=== PATIENT | female | born 2000 | race African-American/Black ===

== ENCOUNTER 2023-02-03 14:23 | Emergency (ER) | payer OTHER ==
[2023-02-03 14:30] VITALS: TEMP 98; BMI 26.4
[2023-02-03 14:58] VITALS: BP 105/67; PULSE 70; RESP 19
[2023-02-03] MEDS ORDERED: SODIUM CHLORIDE 1,000 ML IV STA (15:54)
[2023-02-03] MEDS ORDERED: ONDANSETRON 4 MG/2 ML VIAL IVPUSH ONE (15:54)
[2023-02-03] MEDS ORDERED: ACETAMINOPHEN 1000 MG/100 ML BAG IVPB ONE (15:54)
[2023-02-03] MEDS ORDERED: ACETAMINOPHEN INJECTION 100 ML IVPB ONE (16:15)
[2023-02-03] MEDS ORDERED: ONDANSETRON 4 MG/2 ML VIAL ONE (16:15)
[2023-02-03 16:18] LABS: BASO % 0.4 % (0-2.0); EOS % 0.4 % (0-4.5); HEMATOCRIT 46.1 % (32.4-45.2); HEMOGLOBIN 15.4 GM/dL (10.7-15.3); LYMPH % 9.8 % (8-40); MCH 30.6 pg (25.7-33.7); MCHC 33.4 g/dl (32.0-36.0); MEAN CELL VOLUME 91.8 fl (80-96); MEAN PLT VOLUME 9.7 fl (7.5-11.1); MONO % 3.3 % (3.8-10.2); NEUT % 86.1 % (42.8-82.8); PLATELET COUNT 254 10^3/uL (134-434); RBC 5.02 M/mm3 (3.60-5.2); RDW 14.5 % (11.6-15.6); WHITE BLOOD COUNT 11.2 K/mm3 (4.0-10.0)
[2023-02-03 16:39] LABS: POTASSIUM 4.5 mmol/L (3.5-5.1)
[2023-02-03 16:41] LABS: CALCIUM 9.7 mg/dL (8.5-10.1)
[2023-02-03 16:42] LABS: ALBUMIN 4.3 g/dl (3.4-5.0)
[2023-02-03 16:44] LABS: BLOOD UREA NITROGEN 5.9 mg/dL (7-18)
[2023-02-03 16:45] LABS: CREATININE 0.9 mg/dL (0.55-1.3)
[2023-02-03 16:47] LABS: TOT PROT 7.9 g/dl (6.4-8.2)
[2023-02-03] MEDS ORDERED: morphine CARPU-JECT 2 MG/1 ML DISP.SYRIN IVPUSH ONE (16:59)
[2023-02-03 18:36] LABS: EPI CELLS >36 /uL (0-25.1); HYALINE CASTS 2 /uL (0-3.1); PH,URINE 6.5 (5.0-8.0); URINE APPEARANCE CLEAR; URINE BILIRUBIN NEGATIVE (NEGATIVE); URINE COLOR YELLOW; URINE GLUCOSE (UA) NEGATIVE (NEGATIVE); URINE KETONE 3+ (NEGATIVE); URINE LEUK ESTERASE NEGATIVE (NEGATIVE); URINE NITRITE NEGATIVE (NEGATIVE); URINE PROTEIN 1+ (NEGATIVE); URINE RBC 6 /uL (0-23.9)
[2023-02-03] MEDS ORDERED: morphine CARPU-JECT 4 MG/1 ML DISP.SYRIN IVPUSH ONE (18:53)
[2023-02-03] MEDS ORDERED: morphine SULFATE 4 MG/ML VIAL ONE (19:16)
[2023-02-03 19:29] LABS: URINE BACTERIA 221.5 /uL (0-1359); URINE WBC 72.4 /uL (0-25.8)
== END 2023-02-03 20:24 | disposition home or self-care (01) ==
LOC: MERGE 14:23 → JER 14:23
PROC: 3E033NZ Introduction of Analgesics, Hypnotics, Sedatives into Peripheral Vein, Percutaneous Approach (ICD-10-PCS; principal; 2023-02-03)
PROC: 3E033GC Introduction of Other Therapeutic Substance into Peripheral Vein, Percutaneous Approach (ICD-10-PCS; 2023-02-03)
PROC: 3E033GC Introduction of Other Therapeutic Substance into Peripheral Vein, Percutaneous Approach (ICD-10-PCS; 2023-02-03)
PROC: 3E033GC Introduction of Other Therapeutic Substance into Peripheral Vein, Percutaneous Approach (ICD-10-PCS; 2023-02-03)
PROC: 3E0337Z Introduction of Electrolytic and Water Balance Substance into Peripheral Vein, Percutaneous Approach (ICD-10-PCS; 2023-02-03)
DX: R10.30 Lower abdominal pain, unspecified (principal); R10.2 Pelvic and perineal pain; R11.2 Nausea with vomiting, unspecified; N93.9 Abnormal uterine and vaginal bleeding, unspecified
CPT/HCPCS: 36415; 76817-TC; 80053; 81003; 84702; 85025; 86850; 86900; 86901; 99284-25

== ENCOUNTER 2023-02-05 12:47 | Emergency (ER) | payer OTHER ==
[2023-02-05 12:56] VITALS: BP 91/55; PULSE 86; RESP 20; TEMP 98.6; BMI 26.4
[2023-02-05] MEDS ORDERED: ACETAMINOPHEN 1000 MG/100 ML BAG IVPB ONE (14:01)
[2023-02-05] MEDS ORDERED: ACETAMINOPHEN INJECTION 100 ML IVPB ONE (14:16)
[2023-02-05 14:31] LABS: BASO % 0.7 % (0-2.0); HEMATOCRIT 43.2 % (32.4-45.2); HEMOGLOBIN 14.6 GM/dL (10.7-15.3); LYMPH % 23.1 % (8-40); MCH 31.1 pg (25.7-33.7); MCHC 33.7 g/dl (32.0-36.0); MEAN CELL VOLUME 92.2 fl (80-96); MEAN PLT VOLUME 9.2 fl (7.5-11.1); MONO % 6.5 % (3.8-10.2); NEUT % 68.7 % (42.8-82.8); PLATELET COUNT 242 10^3/uL (134-434); RBC 4.69 M/mm3 (3.60-5.2); RDW 14.6 % (11.6-15.6); WHITE BLOOD COUNT 7.9 K/mm3 (4.0-10.0)
[2023-02-05] MEDS ORDERED: KETOROLAC TROMETHAMINE 15 MG/ML VIAL IVPUSH ONE (14:48)
[2023-02-05] MEDS ORDERED: FAMOTIDINE 20 MG/50 ML IVPB 20 MG/50 ML MG IVPB ONE ×2 (14:52→15:28)
[2023-02-05] MEDS ORDERED: ONDANSETRON 4 MG/2 ML VIAL IVPB ONE (14:53)
[2023-02-05 15:00] LABS: POTASSIUM 3.8 mmol/L (3.5-5.1)
[2023-02-05 15:02] LABS: ALBUMIN 3.9 g/dl (3.4-5.0); BLOOD UREA NITROGEN 6.1 mg/dL (7-18); CALCIUM 9.4 mg/dL (8.5-10.1)
[2023-02-05 15:05] LABS: CREATININE 0.8 mg/dL (0.55-1.3)
[2023-02-05 15:07] LABS: BILIRUBIN,TOTAL 0.7 mg/dL (0.2-1); TOT PROT 7.3 g/dl (6.4-8.2)
[2023-02-05] MEDS ORDERED: MAG HYDROX/AL HYDROX/SIMETH 30 ML UNIT-DOSE CUP PO ONE (15:12)
[2023-02-05] MEDS ORDERED: ONDANSETRON 4 MG/2 ML VIAL ONE (15:28)
[2023-02-05] MEDS ORDERED: KETOROLAC TROMETHAMINE 15 MG/ML VIAL ONE (15:28)
[2023-02-05] MEDS ORDERED: MAG HYDROX/AL HYDROX/SIMETH 30 ML UNIT-DOSE CUP ONE (15:28)
[2023-02-05 16:13] LABS: HCG,QUALITATIVE URINE Positive
[2023-02-05 16:16] LABS: EPI CELLS 24 /uL (0-25.1); HYALINE CASTS 2 /uL (0-3.1); PH,URINE 6.5 (5.0-8.0); URINE APPEARANCE CLEAR; URINE BACTERIA 207 /uL (0-1359); URINE BILIRUBIN NEGATIVE (NEGATIVE); URINE COLOR DK YELLOW; URINE GLUCOSE (UA) NEGATIVE (NEGATIVE); URINE KETONE 1+ (NEGATIVE); URINE LEUK ESTERASE NEGATIVE (NEGATIVE); URINE NITRITE NEGATIVE (NEGATIVE); URINE PROTEIN TRACE (NEGATIVE); URINE RBC 30 /uL (0-23.9); URINE UROBILINOGEN 4.0 E.U/dl mg/dL (0.2-1.0); URINE WBC 42 /uL (0-25.8)
[2023-02-05] MEDS ORDERED: METOCLOPRAMIDE HCL INJECTION 10 MG/2 ML VIAL IVPB ONE (16:23)
[2023-02-05] MEDS ORDERED: METOCLOPRAMIDE HCL INJECTION 10 MG/2 ML VIAL IVPUSH ONE (16:23)
[2023-02-05] MEDS ORDERED: METOCLOPRAMIDE HCL INJECTION 10 MG/2 ML VIAL ONE (16:56)
== END 2023-02-05 17:31 | disposition home or self-care (01) ==
LOC: JER 12:47
PROC: 3E033GC Introduction of Other Therapeutic Substance into Peripheral Vein, Percutaneous Approach (ICD-10-PCS; principal; 2023-02-05)
PROC: 3E033NZ Introduction of Analgesics, Hypnotics, Sedatives into Peripheral Vein, Percutaneous Approach (ICD-10-PCS; 2023-02-05)
PROC: 3E0333Z Introduction of Anti-inflammatory into Peripheral Vein, Percutaneous Approach (ICD-10-PCS; 2023-02-05)
PROC: 3E033GC Introduction of Other Therapeutic Substance into Peripheral Vein, Percutaneous Approach (ICD-10-PCS; 2023-02-05)
PROC: 3E033GC Introduction of Other Therapeutic Substance into Peripheral Vein, Percutaneous Approach (ICD-10-PCS; 2023-02-05)
DX: O21.9 Vomiting of pregnancy, unspecified (principal); O26.891 Other specified pregnancy related conditions, first trimester; O20.9 Hemorrhage in early pregnancy, unspecified; R10.9 Unspecified abdominal pain; R04.2 Hemoptysis; R07.9 Chest pain, unspecified; Z3A.00 Weeks of gestation of pregnancy not specified
CPT/HCPCS: 36415; 71046-TC-FY; 80053; 81003; 84702; 84703; 85025; 87086; 93005; 93010

== ENCOUNTER 2024-09-25 15:13 | Emergency (ER) | payer OTHER ==
[2024-09-25 15:26] VITALS: BMI 24.4
[2024-09-25] MEDS ORDERED: ONDANSETRON 4 MG/2 ML VIAL ONE (18:19)
[2024-09-25 18:21] LABS: ABSOLUTE IMMATURE GRANULOCYTES 0.06 x10^3/uL (0.0-0.031); BASOPHILS # 0.02 x10^3/uL (0.01-0.08); EOSINOPHIL % 0.2 % (0.7-5.8); EOSINOPHILS # 0.03 x10^3/uL (0.04-0.36); HEMATOCRIT 48.5 % (34.1-44.9); HEMOGLOBIN 16.3 g/dL (11.2-15.7); MCHC 33.6 g/dl (32.2-35.5); MEAN CELL VOLUME 89.3 fl (79.4-94.8); MEAN PLT VOLUME 11.7 fl (9.4-12.3); MONOCYTE # 0.62 x10^3/uL (0.24-0.86); MONOCYTE % 3.8 % (4.7-12.5); PLATELET COUNT 250 x10^3/uL (182-369); RDW 13.8 % (12.1-16.5)
[2024-09-25] MEDS: ONDANSETRON 4 MG/2 ML VIAL IVPB ONE (18:27)
[2024-09-25 18:47] LABS: CHLORIDE 100 mmol/L (98-107); SODIUM 133 mmol/L (136-145)
[2024-09-25 18:53] LABS: CALCIUM 10.2 mg/dL (8.5-10.1)
[2024-09-25 18:54] LABS: BLOOD UREA NITROGEN 7.9 mg/dL (7-18); CO2 27 mmol/L (21-32); GLUCOSE,RANDOM 117 mg/dL (74-106)
[2024-09-25 18:57] LABS: SGOT/AST 67 U/L (15-37)
[2024-09-25 18:58] LABS: BILIRUBIN,TOTAL 0.5 mg/dL (0.2-1); TOT PROT 9.2 g/dl (6.4-8.2)
[2024-09-25 18:59] LABS: ALK PHOS 95 U/L (45-117); ANION GAP 5 mmol/L (4-13); POTASSIUM 6.5 mmol/L (3.5-5.1); SGPT/ALT 52 U/L (13-61)
[2024-09-25] MEDS: LACTATED RINGERS SOLUTION 1000 ML INFUS.BAG IV ONE (19:37)
[2024-09-25 19:46] LABS: HCV DIAGNOSTIC IN-HOUSE W/RFLX NON-REACTIVE (NONREACTIVE)
[2024-09-25 19:47] LABS: HIV INTERPRETATION NEGATIVE (NEGATIVE)
[2024-09-25] MEDS ORDERED: ACETAMINOPHEN INJECTION 100 ML ONE (20:22)
[2024-09-25] MEDS: ACETAMINOPHEN 1000 MG/100 ML BAG IVPB ONE (20:24)
[2024-09-25 21:11] LABS: POTASSIUM 3.9 mmol/L (3.5-5.1)
[2024-09-25 21:13] LABS: BLOOD UREA NITROGEN 7.5 mg/dL (7-18); CALCIUM 9.6 mg/dL (8.5-10.1)
[2024-09-25 21:17] LABS: CREATININE 0.8 mg/dL (0.55-1.3)
[2024-09-25] MEDS ORDERED: KETOROLAC TROMETHAMINE 15 MG/ML VIAL ONE (22:06)
[2024-09-25] MEDS: KETOROLAC TROMETHAMINE 30 MG/1 ML VIAL IVPUSH ONE (22:10)
[2024-09-25 22:17] LABS: EPI CELLS 30 /uL (0-25.1); HYALINE CASTS 4 /uL (0-3.1); URINE APPEARANCE CLEAR; URINE BACTERIA 134 /uL (0-1359); URINE BILIRUBIN NEGATIVE (NEGATIVE); URINE COLOR DK YELLOW; URINE GLUCOSE (UA) NEGATIVE (NEGATIVE); URINE KETONE 1+ (NEGATIVE); URINE LEUK ESTERASE TRACE (NEGATIVE); URINE NITRITE NEGATIVE (NEGATIVE); URINE PROTEIN 1+ (NEGATIVE); URINE RBC 19 /uL (0-23.9); URINE UROBILINOGEN 4.0 E.U/dl mg/dL (0.2-1.0); URINE WBC 55 /uL (0-25.8)
[2024-09-25 22:27] LABS: URINE AMPHETAMINES NEGATIVE (NEGATIVE); URINE BARBITURATES NEGATIVE (NEGATIVE)
[2024-09-25 22:28] LABS: COCAINE, UR NEGATIVE (NEGATIVE); METHADONE, UR NEGATIVE (NEGATIVE); PHENCYCLIDINE,URINE NEGATIVE (NEGATIVE)
[2024-09-25 22:48] LABS: OPIATES, URI NEGATIVE (NEGATIVE); URINE BENZODIAZEPINES NEGATIVE (NEGATIVE)
[2024-09-25] MEDS ORDERED: ACETAMINOPHEN 325 MG TABLET (FP) ONE (23:15)
[2024-09-25] MEDS: ACETAMINOPHEN 325 MG TABLET (FP) PO ONE (23:33)
[2024-09-26] MEDS: morphine CARPU-JECT 2 MG/1 ML DISP.SYRIN IVPUSH ONE (00:20)
[2024-09-26] MEDS: CEFTRIAXONE 1,000 MG in DEXTROSE 5%-WATER - 50 ML IVPB ONE (00:20)
[2024-09-26] MEDS: metroNIDAZOLE 250 MG TABLET PO ONE (00:20)
[2024-09-26] MEDS ORDERED: MORPHINE SULFATE 2 MG/ML SYRINGE ONE (00:22)
[2024-09-26] MEDS ORDERED: CEFTRIAXONE 1 GM/50 ML BAG ONE (00:22)
[2024-09-26] MEDS ORDERED: metroNIDAZOLE 250 MG TABLET ONE (00:22)
[2024-09-26 00:46] VITALS: PULSE 64; RESP 18; TEMP 98.5
[2024-09-26 00:48] VITALS: BP 124/84
== END 2024-09-26 00:45 | disposition left against medical advice (07) ==
LOC: JER 15:13
PROC: 3E033GC Introduction of Other Therapeutic Substance into Peripheral Vein, Percutaneous Approach (ICD-10-PCS; principal; 2024-09-25)
PROC: 3E0333Z Introduction of Anti-inflammatory into Peripheral Vein, Percutaneous Approach (ICD-10-PCS; 2024-09-25)
PROC: 3E033GC Introduction of Other Therapeutic Substance into Peripheral Vein, Percutaneous Approach (ICD-10-PCS; 2024-09-25)
DX: K52.9 Noninfective gastroenteritis and colitis, unspecified (principal); R53.1 Weakness; M79.10 Myalgia, unspecified site; R11.0 Nausea; R63.0 Anorexia
CPT/HCPCS: 0241U-QW; 36415; 70450-TC; 71045-TC-FY; 74177-TC; 80048; 80053; 80307; 81003; 82550; 82553; 83690; 84703; 85025; 86803; 87040; 87086; 87389; 93005; 93010; 96374; 96375; 99285-25; Q9967

== ENCOUNTER 2024-09-26 23:44 | Inpatient (IN) | payer OTHER ==
[2024-09-27] MEDS ORDERED: ACETAMINOPHEN INJECTION 100 ML ONE (01:08)
[2024-09-27] MEDS ORDERED: KETOROLAC TROMETHAMINE 15 MG/ML VIAL ONE (01:08)
[2024-09-27] MEDS: ACETAMINOPHEN 1000 MG/100 ML BAG IVPB ONE (01:21)
[2024-09-27] MEDS: KETOROLAC TROMETHAMINE 15 MG/ML VIAL IVPUSH ONE (01:21)
[2024-09-27] MEDS: SODIUM CHLORIDE 0.9% 500 ML INFUS.BAG IV ONE (01:43)
[2024-09-27 02:57] LABS: ABSOLUTE IMMATURE GRANULOCYTES 0.02 x10^3/uL (0.0-0.031); BASOPHILS # 0.02 x10^3/uL (0.01-0.08); EOSINOPHIL % 2.4 % (0.7-5.8); EOSINOPHILS # 0.21 x10^3/uL (0.04-0.36); HEMATOCRIT 40.4 % (34.1-44.9); HEMOGLOBIN 13.6 g/dL (11.2-15.7); MCHC 33.7 g/dl (32.2-35.5); MEAN PLT VOLUME 11.4 fl (9.4-12.3); MONOCYTE # 0.69 x10^3/uL (0.24-0.86); MONOCYTE % 7.8 % (4.7-12.5); PLATELET COUNT 236 x10^3/uL (182-369); RDW 13.9 % (12.1-16.5)
[2024-09-27] MEDS: IBUPROFEN 600 MG TABLET (FP) PO PRN (03:16)
[2024-09-27 03:45] LABS: CHLORIDE 106 mmol/L (98-107); POTASSIUM 3.7 mmol/L (3.5-5.1); SODIUM 139 mmol/L (136-145)
[2024-09-27 03:48] LABS: ANION GAP 9 mmol/L (4-13); CO2 24 mmol/L (21-32); GLUCOSE,RANDOM 101 mg/dL (74-106); MAGNESIUM 1.9 mg/dL (1.8-2.4)
[2024-09-27 03:51] LABS: CREATININE 0.7 mg/dL (0.55-1.3); PHOSPHOROUS 3.4 mg/dL (2.5-4.9); SGOT/AST 12 U/L (15-37); SGPT/ALT 29 U/L (13-61)
[2024-09-27 03:52] LABS: BILIRUBIN,TOTAL 0.2 mg/dL (0.2-1)
[2024-09-27 03:54] LABS: ALK PHOS 84 U/L (45-117)
[2024-09-27 04:18] LABS: ERYTHROCYTE SEDIMENTATION RATE 12 mm/hr (0-20)
[2024-09-27 04:50] LABS: ALBUMIN 3.2 g/dl (3.4-5.0); TOT PROT 6.5 g/dl (6.4-8.2)
[2024-09-27 05:24] LABS: SICKLE CELL SCREEN POSITIVE (NEGATIVE)
[2024-09-27] MEDS: ACETAMINOPHEN 325 MG TABLET (FP) PO PRN (06:20)
[2024-09-27] MEDS: PREGABALIN 25 MG CAPSULE PO SCH (09:34)
[2024-09-27] MEDS: ENOXAPARIN NA (PORCINE) 30 MG/0.3 ML DISP.SYRIN SQ SCH (09:34)
[2024-09-27] MEDS ORDERED: ENOXAPARIN NA (PORCINE) 30 MG/0.3 ML DISP.SYRIN SQ SCH (10:00)
[2024-09-27] MEDS ORDERED: PREGABALIN 25 MG CAPSULE PO SCH (12:35)
[2024-09-27] MEDS: DULoxetine HCL 30 MG CAPSULE.DR PO SCH (17:55)
[2024-09-27 18:19] LABS: COCAINE, UR NEGATIVE (NEGATIVE); URINE AMPHETAMINES NEGATIVE (NEGATIVE); URINE BARBITURATES NEGATIVE (NEGATIVE); URINE BENZODIAZEPINES NEGATIVE (NEGATIVE)
[2024-09-27 18:20] LABS: METHADONE, UR NEGATIVE (NEGATIVE); PHENCYCLIDINE,URINE NEGATIVE (NEGATIVE)
[2024-09-27 18:32] LABS: OPIATES, URI NEGATIVE (NEGATIVE)
[2024-09-27] MEDS ORDERED: AMITRIPTYLINE HCL 10 MG TABLET PO SCH (22:00)
[2024-09-28] MEDS: MELATONIN 5 MG TABLETS PO PRN (01:10)
[2024-09-28] MEDS: ONDANSETRON 4 MG/2 ML VIAL IVPUSH ONE ×3 (02:08→15:12)
[2024-09-28] MEDS: IBUPROFEN 400 MG TABLET (FP) PO PRN (06:12)
[2024-09-28 07:53] LABS: CHLORIDE 107 mmol/L (98-107); POTASSIUM 3.9 mmol/L (3.5-5.1); SODIUM 141 mmol/L (136-145)
[2024-09-28 07:56] LABS: CALCIUM 9.5 mg/dL (8.5-10.1)
[2024-09-28 07:57] LABS: ALBUMIN 3.2 g/dl (3.4-5.0); ANION GAP 9 mmol/L (4-13); BLOOD UREA NITROGEN 5.8 mg/dL (7-18); CO2 25 mmol/L (21-32); GLUCOSE,RANDOM 102 mg/dL (74-106); MAGNESIUM 1.7 mg/dL (1.8-2.4)
[2024-09-28 08:00] LABS: CREATININE 0.6 mg/dL (0.55-1.3); PHOSPHOROUS 3.4 mg/dL (2.5-4.9); SGOT/AST 15 U/L (15-37); SGPT/ALT 27 U/L (13-61)
[2024-09-28 08:01] LABS: ABSOLUTE IMMATURE GRANULOCYTES 0.01 x10^3/uL (0.0-0.031); BASOPHILS # 0.04 x10^3/uL (0.01-0.08); EOSINOPHILS # 0.29 x10^3/uL (0.04-0.36); HEMATOCRIT 41.2 % (34.1-44.9); HEMOGLOBIN 13.6 g/dL (11.2-15.7); MEAN CELL VOLUME 89.4 fl (79.4-94.8); MEAN PLT VOLUME 12.6 fl (9.4-12.3); MONOCYTE # 0.44 x10^3/uL (0.24-0.86); PLATELET COUNT 153 x10^3/uL (182-369); RDW 13.8 % (12.1-16.5)
[2024-09-28 08:02] LABS: BILIRUBIN,TOTAL 0.2 mg/dL (0.2-1); TOT PROT 6.6 g/dl (6.4-8.2)
[2024-09-28 08:03] LABS: ALK PHOS 71 U/L (45-117)
[2024-09-28] MEDS: MAGNESIUM 2GM/50ML STERILE WATER IVPB IVPB ONE (09:00)
[2024-09-28] MEDS: LORazepam 4 MG/1 ML VIAL IVPUSH ONE (11:31)
[2024-09-28] MEDS: FAMOTIDINE 10 MG TABLET PO SCH (12:40)
[2024-09-28] MEDS ORDERED: ACETAMINOPHEN 325 MG TABLET (FP) PO PRN (13:16)
[2024-09-28] MEDS: PANTOPRAZOLE SODIUM 40 MG VIAL IVPUSH ONE (14:03)
[2024-09-28 16:08] VITALS: BMI 22.8
[2024-09-28] MEDS: methylPREDNISolone NA SUCC 125 MG/2 ML VIAL IVPB SCH ×2 (17:22→21:29)
[2024-09-28] MEDS: BACLOFEN 10 MG TABLET (FP) PO SCH (17:22)
[2024-09-28] MEDS: LORazepam 0.5 MG TABLET PO PRN (17:50)
[2024-09-28] MEDS ORDERED: KETOROLAC TROMETHAMINE 15 MG/ML VIAL IVPUSH PRN (19:14)
[2024-09-28] MEDS: KETOROLAC TROMETHAMINE 15 MG/ML VIAL IVPUSH PRN (19:57)
[2024-09-28] MEDS: ACETAMINOPHEN 500 MG TABLET (FP) PO SCH (20:03)
[2024-09-28] MEDS: oxyCODONE HCL 5 MG TABLET PO PRN (21:28)
[2024-09-28] MEDS ORDERED: GABAPENTIN 300 MG CAPSULE PO SCH (22:00)
[2024-09-29] MEDS: PANTOPRAZOLE 40 MG TABLET PO SCH (09:42)
[2024-09-29] MEDS ORDERED: KETOROLAC TROMETHAMINE 15 MG/ML VIAL IVPUSH PRN (15:01)
[2024-09-29] MEDS: KETOROLAC TROMETHAMINE 15 MG/ML VIAL IVPUSH PRN (17:46)
[2024-09-29] MEDS: ONDANSETRON 4 MG/2 ML VIAL IVPUSH PRN (17:53)
[2024-09-29] MEDS: methylPREDNISolone NA SUCC 125 MG/2 ML VIAL IVPB SCH (21:58)
[2024-09-29] MEDS: oxyCODONE HCL 5 MG TABLET PO PRN (22:00)
[2024-09-29] MEDS ORDERED: GABAPENTIN 300 MG CAPSULE PO SCH (22:00)
[2024-09-30] MEDS ORDERED: methylPREDNISolone NA SUCC 125 MG/2 ML VIAL IVPB SCH (10:00)
[2024-10-01 11:15] LABS: HEMATOCRIT 40.6 % (34.1-44.9); HEMOGLOBIN 13.4 g/dL (11.2-15.7); MEAN CELL VOLUME 89.2 fl (79.4-94.8); MEAN PLT VOLUME 11.4 fl (9.4-12.3); PLATELET COUNT 271 x10^3/uL (182-369)
[2024-10-03] MEDS: hydrALAZINE HCL 10 MG TABLET PO ONE ×2 (01:29→17:04)
[2024-10-03 02:13] LABS: PH,URINE 7.5 (5.0-8.0); URINE APPEARANCE CLEAR; URINE BILIRUBIN NEGATIVE (NEGATIVE); URINE COLOR YELLOW; URINE GLUCOSE (UA) NEGATIVE (NEGATIVE); URINE KETONE NEGATIVE (NEGATIVE); URINE LEUK ESTERASE NEGATIVE (NEGATIVE); URINE NITRITE NEGATIVE (NEGATIVE); URINE PROTEIN NEGATIVE (NEGATIVE)
[2024-10-03 02:22] LABS: COCAINE, UR NEGATIVE (NEGATIVE); METHADONE, UR NEGATIVE (NEGATIVE); URINE BENZODIAZEPINES NEGATIVE (NEGATIVE)
[2024-10-03 02:23] LABS: OPIATES, URI NEGATIVE (NEGATIVE); PHENCYCLIDINE,URINE NEGATIVE (NEGATIVE)
[2024-10-03 02:24] LABS: URINE AMPHETAMINES NEGATIVE (NEGATIVE); URINE BARBITURATES NEGATIVE (NEGATIVE)
[2024-10-03 05:55] VITALS: RESP 18
[2024-10-03] MEDS ORDERED: ENOXAPARIN NA (PORCINE) 40 MG/0.4 ML DISP.SYRIN SQ SCH (10:02)
[2024-10-03] MEDS: ENOXAPARIN NA (PORCINE) 40 MG/0.4 ML DISP.SYRIN SQ SCH (10:21)
[2024-10-03] MEDS ORDERED: methylPREDNISolone NA SUCC 125 MG/2 ML VIAL IVPUSH SCH (15:45)
[2024-10-04 05:43] VITALS: PULSE 56
[2024-10-04 10:17] VITALS: BP 154/92; TEMP 97.9
[2024-10-04] MEDS: hydrALAZINE HCL 10 MG TABLET PO ONE (11:24)
[2024-10-04] MEDS: predniSONE 20 MG TABLET (UD) PO ONE (11:24)
== END 2024-10-04 12:20 | DRG 43 ==
LOC: JER 23:44 → INTOOBSV 09-27 01:30 → JERBED 09-27 01:30 → J7W 09-27 03:26 → OBSVTOIN 09-28 17:35
PROVIDERS: ADMIT Hospitalist
DX: G35 Multiple sclerosis (principal); J45.909 Unspecified asthma, uncomplicated; F41.9 Anxiety disorder, unspecified; E83.42 Hypomagnesemia
CPT/HCPCS: 36415; 70551-TC; 70552-TC; 72148-TC; 74018-TC-FY; 80053; 80307; 81003; 82550; 82553; 82607; 82746; 83021; 83735; 84100; 84443; 84702; 85025; 85027; 85651; 85660; 86038; 86140; 93005; 93010; 97116-GP; 97162-GP; 99285-25; G0378; J0475